=== PATIENT | male | born 1950 | race Caucasian/White ===

== ENCOUNTER → 2018-04-29 09:07 | Outpatient (CLI) | payer MEDICARE, BC, SELFPAY ==
--- NOTE | 2018-04-29 09:13 | US_ITS ---
PROCEDURES: ULTRASOUND AORTA REASON FOR EXAM: Male, 67 years old. AAA screening TECHNIQUE: Ultrasound evaluation of the aorta was performed with real-time and static peralta-scale imaging. Limited due to overlying bowel gas and body habitus COMPARISON: None. FINDINGS: There is atherosclerotic plaque formation of the abdominal aorta. Aorta measures: Proximal 2.9 cm. Middle 2.2 cm. Distal 2.0 cm. Aorta measure transversely: Proximal 2.6 cm. Middle 2.3 cm. Distal 2.4 cm. Right iliac artery measures: 0.9 cm. Right iliac artery measure transversely: 1.3 cm. Left iliac artery measures: 1.0 cm. Left iliac artery measure transversely: 1.3 cm. There is no demonstrated aneurysm.. US/US ABD AORTA SCREEN/AAA IMPRESSION: Mild atherosclerosis without demonstrated aneurysm. Electronically Signed: Jong James MD at 8:57 EST , Service support ,
== END ==
PROVIDERS: Family Provider Family Medicine; PCP Family Medicine; Referring Provider Family Medicine; Visit Provider Family Medicine
DX: Z87.891 Personal history of nicotine dependence (principal); Z13.6 Encounter for screening for cardiovascular disorders
CPT/HCPCS: 76706